=== PATIENT | female | born 1940 | race Caucasian/White ===

== ENCOUNTER 2016-02-21 10:12 | Emergency (ER) | payer OTHER ==
[2016-02-21 10:43] VITALS: BP 163/103; PULSE 84; RESP 20; TEMP 98.2; O2SAT 94
--- NOTE | 2016-02-21 11:32 | UCPHY ---
H & P Patient Type: New Chief Complaint Nursing Narrative: reports constipation over the last 2-3 days; has had 3 round of antibiotic recently for dental work Time Seen by Provider: 02/21/16 10:42 HPI/ROS: This patient's history is a bit circuitous but it seems that she is having loose stools now the prompted her visit. She explains that she had antibiotics in December for dental abscess. She then had TMJ pain was prescribed a muscle relaxant that she believes was Flexeril. She developed constipation with no bowel movement for 3 or 4 days and then started taking Colace stool softener. Subsequently she has had loose stools so she stopped the Colace Wednesday and still has some loose stools intermittently. She had some bright red blood on 1 stool that she attributes to a hemorrhoid from straining during her episodes of constipation. She denies any vanda diarrhea she reports that she has intermittent loose stools of small caliber but no other associated symptoms. She is planning a road trip soon want to be sure that she was safe to proceed on her vacation. ROS: No fevers or chills recently. She reports no HEENT complaints. She has no shortness of breath. No other pulmonary complaints no cardiovascular complaints GI. She still tolerating good p.o. intake. She has no nausea vomiting. No crampy abdominal pain. No longer noting any blood in her stool. 10 point ROS is otherwise negative. Source: Patient Exam Limitations: No limitations - Personal History Current Tetanus/Diphtheria Vaccine: No - Medical/Surgical History PMH: Hypothyroid Other PMH: Epilepsy. Thyroidectomy - Family History Significant Family History: No pertinent family hx - Social History Smoking Status: Former smoker Alcohol Use: Occasionally Drug Use: None - Physical Exam Exam: General Appearance: Alert, no distress. Eyes: Pupils equal and round no pallor or injection. ENT, Mouth: Mucous membranes moist. Respiratory: There are no retractions, lungs are clear to auscultation. Cardiovascular: Regular rate and rhythm. Gastrointestinal: Abdomen is soft and nontender, no masses, bowel sounds normal. Rectal exam: Small external hemorrhoid is present at 9 o'clock in lithotomy position with no active bleeding or evidence of thrombosis. She has light brown colored stool with a small streak of red that I suspect is from hemorrhoid no tenderness. No fecal impaction the consistency of the stool is soft Neurological: Alert with no deficits Skin: Warm and dry, no rashes. Musculoskeletal: Neck is supple nontender. Extremities are symmetrical, full range of motion. Psychiatric: Patient has a rambling historian but she is pleasant she answers direct questions appropriately. No overt anxiety DIFFERENTIAL DIAGNOSIS: After history and physical exam differential diagnosis was considered for post antibiotic loose stool due to loss of normal gut joe, hemorrhoid, anxiety Constitutional: Initial Vital Signs Temperature (C) 36.8 C 02/21/16 10:41 Heart Rate 84 02/21/16 10:41 Respiratory Rate 20 02/21/16 10:41 Blood Pressure 163/103 H 02/21/16 10:41 O2 Sat (%) 94 02/21/16 10:41 O2 Delivery Mode Room Air Allergies/Adverse Reactions: latex [Latex] Allergy (Verified 02/21/16 10:39) Rash meperidine HCl [From Demerol] Allergy (Verified 02/21/16 10:39) Vomiting Home Medications: Medication Instructions Recorded Dilantin 02/21/16 PHENOBARBITAL 02/21/16 Synthroid 02/21/16 Medical Decision Making ED Course/Re-evaluation: Patient appears well here with no significant findings on her rectal exam other than the external hemorrhoid that I think is the cause of the heme-positive blood. I counseled regarding this. I did encourage her to have follow up colonoscopy and to start on probiotics. I do not think she has C diff given the mildness of her symptoms currently. I did encourage her to follow up with the GI specialist for colonoscopy. - Data Points Laboratory Results: 02/21/16 11:24 Stool Occult Bld Scrn POSITIVE H (NEGATIVE) Departure - Departure Disposition: Home, Routine, Self-Care Clinical Impression: Loose stools, External hemorrhoid Instructions: Hemorrhoids (ED) Additional Instructions: Diagnosis: 1. Loose stools 2. External hemorrhoids Plan: Hold on a stool softeners at this point. Use probiotic and/or yogurt When you have a chance, follow up with the plastering supervisor for colonoscopy. If he have particular loose stools, he can use Imodium to control the loose stools. Return for any significant worsening despite treatment plan Referrals: Les Zafar MD [Primary Care Provider] - As per Instructions Hector Burns MD [Medical Doctor] - As per Instructions - PQRS PQRS Measurement: 134: Depression screening and followup, PRIME MD-PHQ2 (12 years and older) Over the last 2 weeks, how often have you been bothered by any of the following problems? 1. Feeling down, depressed, or hopeless? 2. Little interest or pleasure in doing things? Patient answered no to both 1 and 2 130: Documentation of medications. Reviewed all patient medications, doses, route and frequency. 226: Do you smoke? [No.] 47: 65 and older: Advanced care planning. Patient designates surrogate decision maker as spouse. 51: 18 years old and older with diagnosis of COPD, spirometry performance. NA 52: 18 years old and older with COPD and symptoms of COPD or FEV1<60% predicted prescribed a B Agonist. NA
== END 2016-02-21 11:40 | disposition home or self-care (01) ==
LOC: CED 10:12
DX: R19.4 Change in bowel habit (principal); K64.9 Unspecified hemorrhoids; E03.9 Hypothyroidism, unspecified; Z87.891 Personal history of nicotine dependence
CPT/HCPCS: 82270-PO; 99204-PO; G0463-PO

== ENCOUNTER 2016-08-19 11:48 | Emergency (ER) | payer OTHER, MEDICARE ==
[2016-08-19 12:05] VITALS: TEMP 98.2
--- NOTE | 2016-08-19 12:08 | EDPHY ---
HPI/HX/ROS/PE/MDM Narrative: CHIEF COMPLAINT: Left shoulder pain HPI: The patient is a 76-year-old female with a history of epilepsy. Patient was brought to the emergency department by her after complaining of left -sided shoulder pain. The exact etiology of this is unclear, but they suspect that the patient may have had a seizure and fall and. Per the , the patient forgot to take her evening epilepsy medications last night which are phenobarbital and Dilantin. He left the house at some point this morning and when he came back the patient was complaining of left shoulder pain and did not know what happened. There was no evidence of trauma at home. The patient denies pain to her head or neck. Additionally the patient does complain of some chronic left hip pain for which she has a doctor's appointment already set up. She denies any new trauma to her hip. Her had her take her evening medications this morning. REVIEW OF SYSTEMS: Aside from elements discussed in the HPI, a comprehensive 10-point review of systems was reviewed and is negative. PMH: Epilepsy. History of prior clavicle fracture. SOCIAL HISTORY: . Denies alcohol or drug abuse. PHYSICAL EXAM: General:Patient is alert, in no acute distress. ENT:Eyes are normal to inspection. ENT inspection normal. Neck: Normal inspection. Full range of motion. Respiratory:No respiratory distress. Breath sounds normal bilaterally. Cardiovascular: Regular rate and rhythm. Strong peripheral pulses. Normal cap refill. Abdomen:The abdomen is nontender to palpation. There are no peritoneal signs. There are normal bowel sounds. Back: Normal to inspection. No tenderness to palpation. Skin: Normal color. No rash. Warm and dry. Extremities: Normal appearance. Mild tenderness to palpation over midshaft left clavicle. Humerus normal to palpation. Light touch sensation and motor function is preserved in the axillary, median, radial and ulnar nerve distributions. There is a 2+ radial pulse with brisk cap refill. Neuro: Somewhat odd affect, possibly secondary to post-ictal. Normal motor function. Normal sensory function. ED Course: X-ray of the left clavicle reveals a displaced distal clavicle fracture. X-ray of the hip is negative. MDM: This patient presents with left clavicle pain and is found to have a left clavicle fracture. Mechanism of her injury as stated above is unclear but likely related to a seizure which is in turn likely related to medication noncompliance. I see no signs of other significant trauma. The patient is quite comfortable. She will be discharged in a sling and given orthopedic referral. General Time Seen by Provider: 08/19/16 11:51 Initial Vital Signs: Initial Vital Signs Temperature (C) 36.8 C 08/19/16 12:00 Blood Pressure 180/105 H 08/19/16 12:00 Allergies/Adverse Reactions: latex [Latex] Allergy (Verified 08/19/16 12:01) Rash meperidine HCl [From Demerol] Allergy (Verified 08/19/16 12:01) Vomiting Home Medications: Medication Instructions Recorded Dilantin 02/21/16 PHENOBARBITAL 02/21/16 Synthroid 02/21/16 Departure - Departure Disposition: Home, Routine, Self-Care Clinical Impression: Clavicle fracture Condition: Good Instructions: Clavicle Fracture (ED) Additional Instructions: Wear sling for comfort. Follow up with an orthopedic surgeon within 1 week. Return to the emergency department for worsening or severe pain. Referrals: Les Zafar MD [Primary Care Provider] - As per Instructions Rehan Ward MD [Medical Doctor] - As per Instructions
[2016-08-19 13:13] VITALS: RESP 16; O2SAT 95
[2016-08-19 13:14] VITALS: BP 167/95; PULSE 78
== END 2016-08-19 13:13 | disposition home or self-care (01) ==
LOC: CED 11:48
DX: S42.002A Fracture of unspecified part of left clavicle, initial encounter for closed fracture (principal); Z91.040 Latex allergy status; W19.XXXA Unspecified fall, initial encounter
CPT/HCPCS: 73000-PO; 73502-PO

== ENCOUNTER → 2016-09-23 | Outpatient (CLI) | payer OTHER, MEDICARE | LOC: BMCIMAGING 10:42 | PROVIDERS: ATTEND Orthopaedic Surgery | DX: S42.002D Fracture of unspecified part of left clavicle, subsequent encounter for fracture with routine healing (principal) ==